=== PATIENT | male | born 1955 | race Caucasian/White ===

== ENCOUNTER → 2023-01-23 18:24 | Outpatient (CLI) | payer OTHER, SELFPAY ==
--- NOTE | 2023-01-23 18:27 | DI.RAD.S_ITS ---
PROCEDURE: XR CHEST 2V INDICATIONS: Cough TECHNIQUE: 2 views of the chest were acquired. COMPARISON: None. FINDINGS: Surgical changes and devices: None. Lungs and pleura: Lungs are clear. No pleural effusions or pneumothorax. Mediastinum: Mediastinal contours are normal. Heart size is normal. Bones and chest wall: No suspicious bony abnormalities. Soft tissues appear unremarkable. IMPRESSION: No acute cardiopulmonary abnormality is seen. Dictated by: Terrell Verduzco M.D. on 01/24/2023 at 9:21 Approved by: Terrell Verduzco M.D. on 01/24/2023 at 9:21
== END ==
PROVIDERS: Referring Provider Nurse Practitioner Family; Visit Provider Nurse Practitioner Family
DX: R05.9 Cough, unspecified (principal)
CPT/HCPCS: 71046

== ENCOUNTER → 2025-02-10 08:45 | Outpatient (CLI) | payer OTHER, SELFPAY ==
--- NOTE | 2025-02-10 14:30 | ST.SWALLOW ---
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 Pt was accompanied by his , Audrey, who assisted in provided PMH. 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 Pt received radiation as well as chemo therapy at that time. Pt reported frequent aspiration with coughing up small pieces for foods (i.e., rice, fruit with skin, almond/nut skin, etc.). Pt and reported significant dysphagia and aspiration. 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 At that time he also had a cervical spine bleed (C2- C4). Pt made a full recovery but noted that he is still numb on the entire right side of his body. Pt has a history of pneumonia; most recent was in 2006 and was reported to be severe. Subjective Pt was seated in the flouroscopy chair with directions Observations and procedures explained for him. He indicated he understood and agreed to proceed. Patient Positioning Position View Lat-A/P Imaging Lateral View Textures Administered Trials Presented Thin Liquid via Spoon (IDDSI 0),Thin Liquid via Cup ( IDDSI 0),Extremely Thick Liquid via Spoon (IDDSI 4), Regular (IDDSI 7) Barium Tablet Yes The IDDSI Framework Protocol: IDDSI.1 Oral Impairment Source: The Modified Barium Swallow Impairment Profile (MBSImP??) Lip Closure No labial escape Tongue Control Cohesive bolus between tongue to palatal seal During Bolus Hold Bolus Preparation/ Disorganized chewing/mashing with solid pieces of bolus Mastication unchewed Bolus Transport/ Slowed tongue motion Lingual Motion Oral Residue Residue collection on oral structures Location Tongue,Lateral sulci Initiation of Bolus head at pyriforms Pharyngeal Swallow Additional Oral *OME indicated reduction of the right side of pt's Impairment tongue secondary to surgery. Lateralization, strength Observations and ROM/speed were noted to be WFL. Palatal area demonstrated adequate posterior elevation/movement with no hypernasality *DKS were observed to be WNL. *Dentition with upper and lower dentures *Mastication observed to be disorganized. *Reduced bolus formation with solid pieces in the bolus *Adequate bolus control, slowed AP transition. *Velopharyngeal closure incomplete with residue to the nasopharynx Pharyngeal Impairment Source: The Modified Barium Swallow Impairment Profile (MBSImP??) Soft Palate Escape to nasopharynx Elevation Laryngeal Elevation Part.sup.move.thyroid cart/part.approx.arytenoids to epiglot.petiole Anterior Hyoid No anterior movement Excursion Epiglottic Movement No inversion Laryngeal Vestibular Incomplete; narrow column air/contrast in laryngeal Closure vestibule Pharyngeal Stripping Absent Wave Pharyngoesophageal Partial distention/partial duration; partial Segment Opening obstruction of flow Tongue Base Wide column of contrast/air betwn tongue base & post. Retraction pharyngeal wall Pharyngeal Residue Collection of residue within/on pharyngeal structures Location Diffuse (>3 areas) Additional *Overall pharyngeal weakness of musculature Pharyngeal *Weak base of tongue retraction strength Impairment *Partial elevation of the larynx; no hyoid movement Observations *Epiglottal inversion inconsistent from no inversion to partial inversion *Laryngeal penetration with contact to vocal folds and laryngeal residue despite effort noted x7 (PAS 5) *Pooled secretions are primary source of laryngeal penetration. Consecutive swallows of liquids (large volume/fast rate) resulted in laryngeal penetration and aspiration below the folds (weak cough; PAS 6) *Semi solid and solid textures and barium tablet most difficult for pt to swallow *Therapeutic trials with: 1) chin tuck - not effective 2 0 head turn to the left- partially effective 3) head turn left with effortful swallow with water effectively cleared pharynx with double swallows A/P View The IDDSI Framework Protocol: IDDSI.1 A/P View Observations Esophageal Clearance Esophageal retention w/regtrograde flow below Upright Position pharyngoesoph segment Esophageal Function Slowed Clearing,Reverse Peristalsis,Stasis Additional A-P *Esophageal observations noted slowed clearance with Observations reverse flow and stasis. Esophageal contents eventually cleared to the stomach with water swallows. *Aspiration was observed x1 with residue seen below the folds but did not enter the trachea. Clinical Impressions Dysphagia Type Oral,Pharyngeal Findings PLEASE REVIEW THE ABOVE OBSERVATIONS FOR DETAILS Pt presented with moderately severe oropharyngeal dysphagia. He presented with overall weakness of the oral and pharyngeal structures secondary to surgical and radiation-related changes. Pt had the greatest difficulty with solid and semisolid food. Swallow strategies were trialed to determine efficacy. A left head turn with effortful swallow with water were found to be the most effective in clearing pharyngeal residue. Airway protection was adequate with with slight aspiration noted x1 with residue below the folds but did not enter the trachea. Pt does not have a history of recurrent pneumonia. This suggests adequate airway protection and/or strong enough cough to eject any food/liquid aspirated. Swallow therapy is recommended for oropharyngeal exercises as well as safe swallow strategies. Rehabilitation Excellent Potential Patient Appropriate Yes for Therapy Recommendations Diet Comments no diet change att his time Treatment Plan Therapy Outpatient Speech Therapy Recommendations
--- NOTE | 2025-02-10 14:40 | ST.OPPOC ---
Physical, Occupational & Speech Therapy At [facility] Visit Care Team Role Provider Type Dina Trotter MD Primary Care Provider Non-Staff Address: [address] [place] [address], [id number] Terence Olguin MD Attending Provider Physician Referring Provider Address: [address] [place] [address], [id number] Speech Pathology Plan of Care Referring Provider Dr Olguin, ENT Patient History Pt was seen for a Modified Barium Swallow Study by Dr Olguin, ENT. Pt was accompanied by his , Audrey, who assisted in provided PMH. 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 Pt received radiation as well as chemo therapy at that time. Pt reported frequent aspiration with coughing up small pieces for foods (i.e., rice, fruit with skin, almond/nut skin, etc.). Pt and reported significant dysphagia and aspiration. 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 At that time he also had a cervical spine bleed (C2-C4). Pt made a full recovery but noted that he is still numb on the entire right side of his body. Pt has a history of pneumonia; most recent was in 2006 and was reported to be severe. Mod Barium Swallow Oral Phase *OME indicated reduction of the right side of pt Other Observations 's tongue secondary to surgery. Lateralization, strength and ROM/speed were noted to be WFL. Palatal area demonstrated adequate posterior elevation/movement with no hypernasality *DKS were observed to be WNL. *Dentition with upper and lower dentures *Mastication observed to be disorganized. *Reduced bolus formation with solid pieces in the bolus, adequate bolus control, slowed AP transition. *Velopharyngeal closure incomplete with residue to the nasopharynx Mod Barium Swallow Lateral *Overall pharyngeal weakness of musculature View Pharyngeal Other *Weak base of tongue retraction strength Observation *Partial elevation of the larynx; no hyoid movement *Epiglottal inversion inconsistent from no inversion to partial inversion *Laryngeal penetration with contact to vocal folds and laryngeal residue despite effort noted x7 (PAS 5) *Pooled secretions are primary source of laryngeal penetration. Consecutive swallows of liquids (large volume/fast rate) resulted in laryngeal penetration and aspiration below the folds (weak cough; PAS 6) *Semi solid and solid textures and barium tablet most difficult for pt to swallow Therapeutic trials with: 1) chin tuck - not effective 2) head turn to the left- partially effective 3) head turn left with effortful swallow with water effectively cleared pharynx with double swallows Mod Barium Swallow A/P View Esophageal observations noted slowed clearance Additional Observations with reverse flow and stasis. Esophageal contents eventually cleared to the stomach with water swallows. Aspiration was observed x1 with residue seen below the folds but did not enter the trachea. MBS Comments PLEASE REVIEW THE ABOVE OBSERVATIONS FOR DETAILS Pt presented with moderately severe oropharyngeal dysphagia. He presented with overall weakness of the oral and pharyngeal structures secondary to surgical and radiation- related changes. Pt had the greatest difficulty with solid and semisolid food. Swallow strategies were trialed to determine efficacy with swallowing. A left head turn with effortful swallow with water were found to be the most effective in clearing pharyngeal residue. Airway protection was adequate with with slight aspiration noted x1 with residue below the folds but did not enter the trachea. Pt does not have a history of recurrent pneumonia. This suggests adequate airway protection and/or strong enough cough to eject any food/liquid aspirated. Swallow therapy is recommended for oropharyngeal exercises as well as safe swallow strategies. Comment: Electronically Signed by: RADHA Arnett 02/10/25 [id number] If you are in agreement with this Plan of Care, please return a signed and dated copy. I have reviewed this Plan of Care and certify that the skilled therapy services above are required to meet the patient?s needs. Physician Signature Date Printed Name and Credentials Clinical Instructor Signature Printed Name and Credentials
--- NOTE | 2025-02-10 14:54 | ST.OPTN ---
Visit Care Team Role Provider Type Dina Trotter MD Primary Care Provider Non-Staff Address: [address] [place] [address], [id number] Terence Olguin MD Attending Provider Physician Referring Provider Address: [address] [place] [address], [id number]
== END ==
LOC: RAD 08:48
PROVIDERS: PCP Student in an Organized Health Care Education/Training Program; Referring Provider Otolaryngology; Visit Provider Otolaryngology
DX: R13.13 Dysphagia, pharyngeal phase (principal); Z85.89 Personal history of malignant neoplasm of other organs and systems
CPT/HCPCS: 74230; 92526; 92611